=== PATIENT | male | born 1995 | race Caucasian/White ===

== ENCOUNTER 2017-04-07 18:59 | Emergency (ER) | payer SELFPAY ==
[~2017-04-07] VITALS: Ht 190.5 cm; Wt 145.1 kg
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
[2017-04-07] MEDS ORDERED: CYCL10TA9 PO (22:34)
[2017-04-07] MEDS ORDERED: NAPR500T4 PO (22:34)
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
[2017-04-07 22:45] VITALS: BP 127/82
== END 2017-04-07 22:47 | disposition home or self-care (01) ==
LOC: ER 19:01
DX: S06.0X0A Concussion without loss of consciousness, initial encounter (principal); S13.4XXA Sprain of ligaments of cervical spine, initial encounter; V49.50XA Passenger injured in collision with unspecified motor vehicles in traffic accident, initial encounter
CPT/HCPCS: 70450; 70486; 71010; 71260; 72125; 72128; 72131; 72170; 74177